=== PATIENT | male | born 2005 | race Caucasian/White ===

== ENCOUNTER 2024-07-02 15:30 | Outpatient (CLI) | payer OTHER, SELFPAY ==
--- NOTE | ~2024-07-02 | CT_ITS ---
Noncontrast CT scan of the left wrist CLINICAL HISTORY: Sprain TECHNIQUE: Axial noncontrast imaging of the left wrist was performed. Sagittal and coronal reformatte d images were constructed. Dose reduction technique was used on this scan by utilizing automated expo sure control and iterative reconstruction technique. The dose-length product (DLP) was 469.08 mGy-cm. Findings: No acute fracture or dislocation seen. There is a focal bone island of the distal scaphoid. Joint spaces are intact. No evidence for significant erosive or degenerative arthropathy. No definit e joint effusion identified. Visualized flexor and extensor tendons are grossly intact. No soft tissue mass or fluid collection ev ident. Subcutaneous soft tissues are unremarkable. IMPRESSION: No significant abnormality seen. Reviewed, dictated and finalized at [facility].
== END 2024-07-02 15:31 | disposition home or self-care (01) ==
DX: S63.92XA Sprain of unspecified part of left wrist and hand, initial encounter (principal)
CPT/HCPCS: 73200